=== PATIENT | female | born 1975 | race Caucasian/White ===

== ENCOUNTER 2017-12-09 13:36 | Emergency (ER) | payer MEDICAID, SELFPAY ==
[2017-12-09 13:37] VITALS: BP 159/102; PULSE 88; RESP 20; TEMP 36.9; O2SAT 98; BMI 58.6
--- NOTE | 2017-12-09 14:18 | ED.VISSUMM ---
- ER Visit Summary Date of Service: 12/09/17 Chief Complaint: Fall History of Present Illness: The patient is a 42 F presenting after fall. This occurred 2 days ago. She states she missed a step and fell down one step. She hit her head. She does not believe she lost consciousness. No amnesia to the event. No vomiting. She has taken Tylenol at home. She woke up the next day with swelling of her face. She has taken Tylenol in the past but is unsure if she may be allergic to it. She has multiple allergies and is allergic to steroids. She complains of continued headache and neck pain. She called her primary care physician today and was sent to the ED for further evaluation. Physical Examination: Vitals are stable. Patient is afebrile. Alert no acute distress. HEENT exam mild left periorbital swelling, PERRL, EOMI. No tongue swelling. No pharyngeal edema. Neck is mild diffuse tenderness, no stepoff Lungs are clear and equal bilaterally. Heart is regular rate and rhythm. Abdomen is soft nontender nondistended. Extremities left arm tenderness with ecchymosis, active full range of motion Skin is warm and dry. No focal neurologic deficit. Remainder of exam is unremarkable. Emergency Department Course and Treatment: Patient was given oxycodone and Benadryl. CT head shows soft tissue swelling overlying the right occipital bone. CT C-spine shows no fracture. CT facial bones shows partial opacification of the ethmoid sinus as well as focal thickening of the right sphenoid sinus. On reevaluation, she is resting comfortably. She is given a prescription for short course of oxycodone. She is advised to follow-up with her primary care physician. Advised signs and symptoms for which to return to the emergency department. Disposition: Discharge home Impression: Status post mechanical fall, concussion without loss of consciousness This note was generated with [employer] dictation software. It may contain incorrect words, spelling, and punctuation that were not noted in review of the chart prior to signing ED Disposition - Plan for ED Patient: Chief Complaint: Fall Referrals: Winston Murdock DO [Primary Care Provider] -
[2017-12-09] MEDS: oxyCODONE 5 MG Tablet PO (15:10)
[2017-12-09] MEDS: DiphenhydrAMINE 25 MG Capsule PO (15:10)
--- NOTE | 2017-12-09 16:04 | ED.DEP ---
ED Disposition - Plan for ED Patient: Chief Complaint: Fall Instructions: ED Mechanical Fall, ED Concussion Prescriptions: Oxycodone [Oxyir] 5 mg PO Q6H PRN PRN 3 Days #10 tablet PRN Reason: Pain Referrals: Winston Murdock DO [Primary Care Provider] -
[2017-12-09 16:17] VITALS: BP 153/100; PULSE 69; RESP 15; O2SAT 97
--- NOTE | 2017-12-09 16:17 | ED.RN ---
PT GIVEN WRITTEN AND VERBAL DISCHARGE INSTRUCTIONS AND HOME GOING PRESCRIPTIONS. PT EDUCATED NOT TO DRIVE WHEN TAKING MEDICATION AND VERBALIZES UNDERSTANDING. PT AMBULATES OUT OF DEPT BY SELF.
== END 2017-12-09 16:18 | disposition home or self-care (01) ==
LOC: ED 14:08
PROVIDERS: Emergency Provider Emergency Medicine; Family Provider Student in an Organized Health Care Education/Training Program; PCP Student in an Organized Health Care Education/Training Program
DX: S06.0X0A Concussion without loss of consciousness, initial encounter (principal); W10.8XXA Fall (on) (from) other stairs and steps, initial encounter; Y93.9 Activity, unspecified; Y92.9 Unspecified place or not applicable; G40.909 Epilepsy, unspecified, not intractable, without status epilepticus; Z72.0 Tobacco use
CPT/HCPCS: 70450; 70486; 72125; 99283

== ENCOUNTER 2018-01-13 20:05 | Emergency (ER) | payer MEDICAID, SELFPAY ==
[2018-01-13 20:07] VITALS: BP 154/96; PULSE 98; RESP 14; TEMP 36.7; O2SAT 99; BMI 58.6
== END 2018-01-13 21:26 | disposition left against medical advice (07) ==
LOC: ED 20:52
PROVIDERS: Emergency Provider Emergency Medicine; Family Provider Student in an Organized Health Care Education/Training Program; PCP Student in an Organized Health Care Education/Training Program
DX: R69 Illness, unspecified (principal); Z53.21 Procedure and treatment not carried out due to patient leaving prior to being seen by health care provider

== ENCOUNTER → 2018-01-15 16:37 | Outpatient (CLI) | payer MEDICAID, SELFPAY ==
[2018-01-15 17:00] LABS: Absolute Lymphocyte Count 1.64 X10^3/ul (0.83-4.51); Absolute Neutrophil Count 4.8 X10^3/uL (2.0-7.7); Basophil# 0.03 X10^3/uL; Basophil% 0.4 % (0-1); Eosinophils% 2.8 % (0-5); Hematocrit 40.3 % (37-47); Hemoglobin 12.8 g/dl (12.0-15.0); Lymphocyte # 1.64 X10^3/ul (4.0); Lymphocyte % 22.8 % (19-41); Mean Corp Hgb Conc 31.8 g/gl (32-36); Mean Corpuscular Hgb 28.1 pg (27.0-32.0); Mean Corpuscular Volume 88.4 fL (81-99); Mean Platelet Vol. 9.3 fl (6.2-12.0); Monocyte# 0.49 X10^3/uL; Monocyte% 6.8 % (0-10); Neutrophil # 4.83 X10^3/uL (2.7-7.7); Neutrophil % 67.1 % (47-70); POSITIVE COUNT NO; POSITIVE DIFFERENTIAL NO; POSITIVE MORPHOLOGY NO; Platelet Count 283 K/mm3 (150-450); RBC Distribution Width CV 14.3 % (11.6-14.6); RBC Distribution Width SD 46.1 fl (35.1-43.9); Red Blood Count 4.56 M/mm3 (4.2-5.4); White Blood Count 7.2 K/mm3 (4.4-11.0)
[2018-01-15 17:22] LABS: D-Dimer Quantitative (DVT/PE) 1.08 FEU/ug/m (0.27-0.49)
[2018-01-15 17:46] LABS: BNP,B-Type NATRIURETIC PEPTIDE 49.6 pg/mL (0-100)
[2018-01-15 17:47] LABS: ALB/GLOB Ratio 0.8 RATIO (0.9-2.4); AST(SGOT) 11 U/L (15-37); Alanine Aminotransfer ALT/SGPT 13 U/L (13-56); Albumin, Serum 2.9 g/dL (3.2-5.0); Alkaline Phosphatase 62 U/L (45-117); Anion Gap 7 (5-15); BUN 11 mg/dL (7-18); BUN/Creat Ratio 14.7 RATIO (10-20); Calcium,Total 8.3 mg/dL (8.5-10.1); Chloride 106 mmol/L (98-107); Creatinine, Serum 0.75 mg/dL (0.55-1.02); EST Glomerular Filtration Rate 91 mL/min (>60); Est Glom Filt Rate - Afr Amer 110 mL/min (>60); Globulin 3.6 g/dL (2.2-4.2); Glucose 93 mg/dL (74-106); Protein, Total 6.5 g/dL (6.4-8.2); Sodium Level 141 mmol/L (136-145)
== END ==
LOC: CT 16:56 → LAB 17:13
PROVIDERS: Family Provider Student in an Organized Health Care Education/Training Program; PCP Student in an Organized Health Care Education/Training Program; Visit Provider Nurse Practitioner Adult Health
DX: R06.02 Shortness of breath (principal); R60.9 Edema, unspecified; I87.1 Compression of vein
CPT/HCPCS: 36415; 80053; 83880; 85025; 85379

== ENCOUNTER 2018-01-15 17:05 | Emergency (ER) | payer MEDICAID, SELFPAY ==
[2018-01-15 17:06] VITALS: BP 135/73; PULSE 87; RESP 17; TEMP 36.6; O2SAT 99; BMI 64.0
--- NOTE | 2018-01-15 17:39 | ED.RN ---
notified MD of d-dimer 1.08
--- NOTE | 2018-01-15 18:03 | CT_ITS ---
STUDY: CTA CHEST/THORAX REASON FOR EXAM: Female, 42 years old. Shortness of breath. RADIATION DOSAGE (If Supplied By Facility): CTDIvol = ( 29.75 ) mGy, DLP = ( 2110.37 ) mGycm TECHNIQUE: The examination was performed with the intravenous administration of 100 ml of Isovue 370 contrast material. Post-processing of the angiographic images was performed, with multiplanar reformation. No 3D reconstruction. Individualized dose optimization techniques were used for this CT. COMPARISON: None. FINDINGS: Normal enhancement of the main pulmonary artery and right and left pulmonary arteries. Enhancement of the bilateral peripheral pulmonary arteries is degraded by numerous levels of transverse band like artifact projecting through the chest. There is no overt pulmonary embolism. Normal thoracic aorta and visualized great vessels. There is no demonstrated aortic dissection. The heart size is upper normal. Normal pericardium. Normal mediastinum. Normal hilar regions. Normal visualized trachea and bronchi. Normal pulmonary parenchyma. Normal pleura. Normal chest wall structures. There are multilevel degenerative changes of the thoracic spine. While not fully included in the [id number], both the liver and spleen appear mildly enlarged. There are surgical clips of prior cholecystectomy in the gallbladder fossa. Hyperdensity in the visualized upper pole of the left kidney is presumably excreted contrast in a renal calyx. CT/CTA Chest W/WO Contrast IMPRESSION: 1. Detail of the peripheral pulmonary artery branches degraded by multilevel transverse bandlike artifacts, but there is no demonstrated pulmonary embolism or arterial dissection. 2. No pneumonic infiltrate or pleural effusion. 3. There is suggestion of hepatosplenomegaly. Patient has undergone prior cholecystectomy. Electronically Signed: Blaze Anderson MD at 19:09 EDT , Service support ,
[2018-01-15 19:28] VITALS: BP 123/73; PULSE 79; RESP 20; O2SAT 98
--- NOTE | 2018-01-15 19:48 | ED.VISSUMM ---
- ER Visit Summary Date of Service: 01/15/18 Chief Complaint: Short of breath, edema History of Present Illness: The patient is a 42 F who presents with continued left-sided pain and swelling after a fall onto her left side 1 month ago. Patient was seen by her PCP today. Lab work was sent and d-dimer returned elevated. Patient was sent to the ER for a scan of her chest. Physical Examination: Vital signs are unremarkable. Heart rate is 87, respiratory rate 17,. And pulse ox is 99%. Patient has lying in bed no acute distress. Head neck examination unremarkable. Heart is regular rate and rhythm. Lung sounds are clear. Abdomen is soft nontender. Extremity examination reveals minimal left leg edema when compared to the right. She has strong distal pulses throughout. There is no focal area of tenderness on palpation throughout the extremities. Test Results: I did review her lab work including CBC, CMP, BNP, d-dimer from earlier today. Her creatinine is 0.75 and her d-dimer was 1.08. CTA of the chest is obtained at this time and reveals no evidence of PE or dissection. Emergency Department Course and Treatment: Test results are discussed with the patient. She is currently taking Tylenol at home for pain. She is an allergy to NSAIDs and steroids. Patient states they did give her muscle relaxers to try as well. Treatment Plan: [] Disposition: Discharge Impression: Myalgias This note was generated with [facility] dictation software. It may contain incorrect words, spelling, and punctuation that were not noted in review of the chart prior to signing ED Disposition - Plan for ED Patient: Disposition: Home or Assisted Living Chief Complaint: Shortness of Breath Instructions: ED Muscle Aching Referrals: Winston Murdock DO [Primary Care Provider] - 5-7 Days
== END 2018-01-15 19:58 | disposition home or self-care (01) ==
PROVIDERS: Emergency Provider Emergency Medicine; Family Provider Student in an Organized Health Care Education/Training Program; PCP Student in an Organized Health Care Education/Training Program
DX: M79.1 Myalgia (principal); R06.02 Shortness of breath; R60.9 Edema, unspecified; I87.1 Compression of vein; K21.9 Gastro-esophageal reflux disease without esophagitis; J44.9 Chronic obstructive pulmonary disease, unspecified; G40.909 Epilepsy, unspecified, not intractable, without status epilepticus; Z79.899 Other long term (current) drug therapy; Z72.0 Tobacco use
CPT/HCPCS: 36415; 71275; 80053; 83880; 85025; 85379; 99283; Q9967; A4216